=== PATIENT | female | born 1970 | race Caucasian/White ===

== ENCOUNTER → 2017-12-27 | Outpatient (CLI) | payer BC, OTHER ==
[~2017-12-27] MED LIST: AMOX875T PO; B12 PO; CALC1CAP8 PO; DOCU100C33 PO; DOCU240C31 PO; FISH OIL PO; IBUP-1222 PO; MUCINEX PO; OXYC1TAB7 PO; PROBIOTIC PO; SIME80TA15 PO; TEMA30CA PO; VITAMIN C PO; [UNRECOGNIZED DRUG - OTHER] PO
== END ==
LOC: CFH 09:43
PROVIDERS: ATTEND Family Medicine
DX: Z12.31 Encounter for screening mammogram for malignant neoplasm of breast (principal); Z98.82 Breast implant status
CPT/HCPCS: 77067

== ENCOUNTER → 2019-04-17 | Outpatient (CLI) | payer BC, OTHER | END | disposition home or self-care (01) | LOC: STAR 12:25 | PROVIDERS: ATTEND Nurse Practitioner Family | DX: Z01.812 Encounter for preprocedural laboratory examination (principal); I48.4 Atypical atrial flutter | CPT/HCPCS: 93005 ==